=== PATIENT | female | born 1995 | race Hispanic/Latino ===

== ENCOUNTER 2021-01-30 16:10 | Emergency (ER) | payer SELFPAY ==
[2021-01-30] MEDS ORDERED: propofoL 200 MG/20 ML VIAL IV ONE (16:22)
[2021-01-30] MEDS ORDERED: KETAMINE HCL 500 MG/5 ML VIAL ONE (16:23)
--- NOTE | 2021-01-30 17:21 | RAD REPORT ---
EXAM DESCRIPTION: RAD - Knee Left 2 View - 01/30/2021 4:29 pm CLINICAL HISTORY: DEFORMITY COMPARISON: Knee Left 2 View dated 01/30/2021; Ankle Left 2 View dated 01/30/2021; Ankle Left 2 View dated 01/30/2021 FINDINGS: No fracture of the femur, tibia or fibula identified. There is dislocation of the patella without fracture identified. No measurable joint effusion. No joint space narrowing. No soft tissue a bnormality. IMPRESSION: Patella dislocation without fracture.
--- NOTE | 2021-01-30 17:23 | RAD REPORT ---
EXAM DESCRIPTION: RAD - Ankle Left 2 View - 01/30/2021 4:29 pm CLINICAL HISTORY: DEFORMITY, trip and fall COMPARISON: No comparisons FINDINGS: Frontal lateral projections of the ankle performed. Left ankle fracture dislocation is pre sent. There is lateral dislocation of the talus relative to the distal tibia. Medial malleolus transv erse fracture is present with fracture fragment maintaining positioning with the dome of the talus. O blique fractures of the distal fibula is also present with the fibula fracture fragment positioned ad jacent to the dome of the talus. Talus is dislocated laterally and posteriorly. Posterior malleolus f racture is suspected but not confirmed. No calcaneus fracture. Talus does not appear to be fractured. Tarsal and metatarsal bones are intact. Soft tissue swelling is present. IMPRESSION: Left ankle fracture dislocation as detailed.
--- NOTE | 2021-01-30 17:28 | RAD REPORT ---
EXAM DESCRIPTION: RAD - Knee Left 2 View - 01/30/2021 5:10 pm CLINICAL HISTORY: post reduction COMPARISON: Knee Left 2 View dated 01/30/2021 FINDINGS: Frontal and cross-table lateral left knee images obtained labeled post reduction. Patella has been reduced to anatomic position. No fracture identified.
--- NOTE | 2021-01-30 17:28 | RAD REPORT ---
EXAM DESCRIPTION: RAD - Ankle Left 2 View - 01/30/2021 5:09 pm CLINICAL HISTORY: post reduction COMPARISON: Ankle Left 2 View dated 01/30/2021 FINDINGS: Dislocated talus has been reduced to anatomic position. Distal fibular fracture also reduc ed to an anatomic position. Medial malleolus fracture fragment remains distracted approximately 2 mm. On the post reduction imaging the posterior malleolus appears to be intact. Delete select IMPRESSION: Reduction of the talus dislocation as detailed.
--- NOTE | 2021-01-30 18:09 | EDPHYS ---
Physician Documentation [facility] Name: Josie Hartmann Age: 25 yrs Sex: Female : 1995 Arrival Date: 01/30/2021 Time: 16:12 Bed 2 Private MD: ED Physician Marc Maddox HPI: 01/30 18:02 This 23 yrs old Female presents to ER via EMS with complaints of injury left jr8 leg. 18:02 This is a 23-year-old female that presented to the emergency room via EMS after jr8 sustaining a traumatic left leg injury. Patient was stepping off of an exercise box when she rolled her left leg causing immediate deformity to the ankle and to the left knee. Patient was given fentanyl in route to the emergency room and was stabilized in a position of comfort. Patient denies any other pain or traumatic findings at this time.. Historical: - Allergies: 17:27 No Known Allergies; jh5 - Immunization history:: Adult Immunizations up to date. - Social history:: Smoking status: Patient denies any tobacco usage or history of. ROS: 18:02 Eyes: Negative for injury, pain, redness, and discharge, ENT: Negative for injury, jr8 pain, and discharge, Neck: Negative for injury, pain, and swelling, Cardiovascular: Negative for chest pain, palpitations, and edema, Respiratory: Negative for shortness of breath, cough, wheezing, and pleuritic chest pain, Abdomen/GI: Negative for abdominal pain, nausea, vomiting, diarrhea, and constipation, Back: Negative for injury and pain, Skin: Negative for injury, rash, and discoloration, Neuro: Negative for headache, weakness, numbness, tingling, and seizure. 18:02 MS/extremity: Positive for decreased range of motion, deformity, pain, tenderness, of the left leg. Exam: 18:02 Head/Face: Normocephalic, atraumatic. Neck: Trachea midline, no thyromegaly or masses jr8 palpated, and no cervical lymphadenopathy. Supple, full range of motion without nuchal rigidity, or vertebral point tenderness. No Meningismus. Chest/axilla: Normal chest wall appearance and motion. Nontender with no deformity. No lesions are appreciated. Cardiovascular: Regular rate and rhythm with a normal S1 and S2. No gallops, murmurs, or rubs. Normal PMI, no JVD. No pulse deficits. Respiratory: Lungs have equal breath sounds bilaterally, clear to auscultation and percussion. No rales, rhonchi or wheezes noted. No increased work of breathing, no retractions or nasal flaring. Abdomen/GI: Soft, non-tender, with normal bowel sounds. No distension or tympany. No guarding or rebound. No evidence of tenderness throughout. Back: No spinal tenderness. No costovertebral tenderness. Full range of motion. Skin: Warm, dry with normal turgor. Normal color with no rashes, no lesions, and no evidence of cellulitis. Neuro: Awake and alert, GCS 15, oriented to person, place, time, and situation. Cranial nerves II-XII grossly intact. Motor strength 5/5 in all extremities. Sensory grossly intact. 18:02 Constitutional: The patient appears alert, awake, in obvious pain. 18:02 Musculoskeletal/extremity: Extremities: grossly normal except: noted in the left leg: Patient has obvious patellar dislocation to the left knee. Patient has obvious lateral dislocation of the left ankle. Sensation intact with 2+ posterior tibial and dorsal podalic's pulses. Able to wiggle toes. Overall decreased range of motion secondary to deformity and pain. Remainder of extremities unremarkable.. Vital Signs: 17:19 BP 145 / 97; Pulse 92; Resp 16; Pulse Ox 100% ; Weight 113.4 kg; jh5 17:29 BP 144 / 98; Pulse 87; Resp 16; Pulse Ox 100% ; jh5 Procedures: 18:02 Reduction: of the left knee, using traction, manipulation, Immobilized with OCL splint, jr8 Patient tolerated well. Post reduction film - reveals normal alignment. Reduction: of the left ankle, using traction, manipulation, Immobilized with OCL splint, Patient tolerated well. Post reduction film - reveals improved alignment. 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 MDM: 16:22 Patient medically screened. jr8 18:02 Data reviewed: vital signs, nurses notes, lab test result(s), radiologic studies, plain jr8 films. Data interpreted: Pulse oximetry: on room air is 100 %. Interpretation: normal. Counseling: I had a detailed discussion with the patient and/or guardian regarding: the historical points, exam findings, and any diagnostic results supporting the discharge/admit diagnosis, lab results, radiology results, the need to transfer to another facility, [facility] does not immediately have the required specialist. ED course: Patient continues to have an unstable trimalleolar fracture present. Marked improvement in alignment and has been splinted at this time but needs further evaluation by orthopedic trauma specialist. As such patient has been accepted at [facility] for further evaluation.. 01/30 16:14 Order name: Knee Left 2 View XRAY; Complete Time: 17:28 iw 01/30 16:14 Order name: Ankle Left 2 View XRAY; Complete Time: 17:28 iw 01/30 17:04 Order name: Ankle Left 2 View XRAY; Complete Time: 17:32 bd 01/30 17:04 Order name: Knee Left 2 View XRAY; Complete Time: 17:32 bd Administered Medications: 16:36 Drug: Ketamine 1 mg/kg {Note: 100mg/1ml.} Route: IVP; Site: left hand; [facility] 16:38 Drug: Propofol 100 mg {Note: 30mg Per PA. Gianluca} Route: IVP; Site: left hand; [facility] Disposition: 01/31 08:16 Co-signature as Attending Physician, Marc Maddox MD I agree with the assessment and kdr plan of care. Disposition Summary: 01/30/21 18:08 Transfer Ordered Transfer Location: [facility] jr Reason: Higher level of care jr8 Condition: Stable jr8 Problem: new jr8 Symptoms: have improved jr8 Accepting Physician: Dr. Chadwick(01/30/21 19:01) [facility] Diagnosis - Lateral dislocation of left patella jr8 - Displaced trimalleolar fracture of left lower leg, initial encounter for closed jr8 fracture Forms: - Medication Reconciliation Form jr8 - SBAR form jr8 Signatures: Dispatcher [employer] EDMS Marc Maddox MD MD kdr Roszak, Josh, PA PA jr8 Cyndi Velasquez RN RN jh5 Corrections: (The following items were deleted from the chart) 01/30 19:01 18:08 Dr. Chadwick 8 jh5
--- NOTE | 2021-01-30 18:09 | ER ---
Nurse's Notes [facility] Name: Josie Hartmann Age: 25 yrs Sex: Female : 1995 Arrival Date: 01/30/2021 Time: 16:12 Bed 2 Private MD: Diagnosis: Lateral dislocation of left patella;Displaced trimalleolar fracture of left lower leg, initial encounter for closed fracture Presentation: 01/30 17:22 Chief complaint: EMS states: Pt fell while working out; positive knee and ankle jh5 dislocation. Coronavirus screen: Vaccine status: Patient reports being unvaccinated. Client denies travel out of the [place] in the last 14 days. Ebola Screen: Patient negative for fever greater than or equal to 101.5 degrees Fahrenheit, and additional compatible Ebola Virus Disease symptoms Patient denies exposure to infectious person. Patient denies travel to an Ebola-affected area in the 21 days before illness onset. No symptoms or risks identified at this time. Initial Sepsis Screen: Does the patient meet any 2 criteria? No. Patient's initial sepsis screen is negative. Does the patient have a suspected source of infection? No. Patient's initial sepsis screen is negative. Risk Assessment: Do you want to hurt yourself or someone else? Patient reports no desire to harm self or others. Onset of symptoms was January 30, 2021. 17:22 Method Of Arrival: EMS: [place] [address] 17:22 Acuity: HIMANSHU 2 [facility] Triage Assessment: 17:27 General: Appears uncomfortable, obese, Behavior is calm, cooperative, appropriate for [facility] age. Pain: Complains of pain in left leg. Neuro: No deficits noted. Level of Consciousness is awake, alert, obeys commands, Oriented to person, place, time, situation, Speech is normal. Cardiovascular: No deficits noted. Capillary refill < 3 seconds Patient's skin is warm and dry. Respiratory: No deficits noted. Airway is patent Trachea midline Respiratory effort is even, unlabored, Respiratory pattern is regular, symmetrical. Historical: - Allergies: 17:27 No Known Allergies; [facility] - Immunization history:: Adult Immunizations up to date. - Social history:: Smoking status: Patient denies any tobacco usage or history of. Screenin:29 Abuse screen: Denies threats or abuse. Denies injuries from another. Nutritional [facility] screening: No deficits noted. Tuberculosis screening: No symptoms or risk factors identified. Fall Risk Fall in past 12 months (25 points). IV access (20 points). Vital Signs: 17:19 BP 145 / 97; Pulse 92; Resp 16; Pulse Ox 100% ; Weight 113.4 kg; jh5 17:29 BP 144 / 98; Pulse 87; Resp 16; Pulse Ox 100% ; [facility] ED Course: 16:12 Patient arrived in ED. bd 16:19 Gianluca Wilkinson PA is PHCP. pm1 16:22 Marc Maddox MD is Attending Physician. jr 16:28 Cyndi Velasquez, GILBERTO is Primary Nurse. 5 16:29 Knee Left 2 View XRAY In Process Unspecified. EDMS 16:29 Ankle Left 2 View XRAY In Process Unspecified. EDMS 17:09 Ankle Left 2 View XRAY In Process Unspecified. EDMS 17:09 Knee Left 2 View XRAY In Process Unspecified. EDMS 17:27 Triage completed. [facility] 17:30 Arm band placed on right wrist. [facility] 17:30 Patient has correct armband on for positive identification. Bed in low position. Call [facility] light in reach. Side rails up X2. 17:30 Inserted saline lock:. [facility] 17:31 No provider procedures requiring assistance completed. [facility] Administered Medications: 16:36 Drug: Ketamine 1 mg/kg {Note: 100mg/1ml.} Route: IVP; Site: left hand; [facility] 16:38 Drug: Propofol 100 mg {Note: 30mg Per JANINA Hough.} Route: IVP; Site: left hand; [facility] Outcome: 17:31 Discharged to [facility] 17:31 Condition: good 18:08 ER care complete, transfer ordered by . [facility] 19:01 Patient left the ED. [facility] Signatures: Dispatcher [employer] EDMS Dayana Muhammad Gianluca Wilkinson PA PA [facility] Andrés Vee MIXING MACHINE OPERATOR MIXING MACHINE OPERATOR pm1 Cyndi Velasquez, RN RN [facility]
[2021-01-30 19:15] VITALS: O2SAT 100
[2021-01-30 19:17] VITALS: BP 144/98
== END 2021-01-30 19:01 | disposition short-term general hospital (02) ==
LOC: EDBD 16:10 → ER 16:10
PROC: 0QSFXZZ Reposition Left Patella, External Approach (ICD-10-PCS; principal; 2021-01-30)
PROC: 0QSHXZZ Reposition Left Tibia, External Approach (ICD-10-PCS; 2021-01-30)
DX: S82.852A Displaced trimalleolar fracture of left lower leg, initial encounter for closed fracture (principal); Y93.B9 Activity, other involving muscle strengthening exercises
CPT/HCPCS: 96374; 96375; 99284; J2704

== ENCOUNTER 2021-03-06 14:46 | Emergency (ER) | payer SELFPAY ==
--- OUTSIDE RECORDS SUMMARY | 2021-03-06 14:48 | XMS REPORT | Continuity of Care Document ---
:1995 Author Organization [facility] t Address [address] [place] [address] Care Team Providers Name Role Phone ROSEMARIE BENNETT Attending Clinician Unavailable Jeri ZAFAR Attending Clinician Unavailable Harper HERNANDEZ Attending Clinician Unavailable JULISA Attending Clinician Unavailable Ronaldo ROJAS Attending Clinician Unavailable REG Attending Clinician Unavailable Nhan VILLANUEVA Admitting Clinician Unavailable Payers Payer Name Policy Type Policy Number Effective Date Expiration Date S ource PENDING MEDICAID [id number] 2021 2021 ([facility]) 00:00:00 00:00:00 Problems This patient has no known problems. Allergies, Adverse Reactions, Alerts This patient has no known allergies or adverse reactions. Medications This patient has no known medications. Procedures This patient has no known procedures. Encounters Start End Encounter Admission Attending Care Care Encounter Source Date/Time Date/Time Type Type Clinicians Facility Department ID 2021-03-21 2021-03-21 Outpatient [facility] [id number] [place] 00:00:00 00:00:00 [facility] 2021-03-21 2021-03-21 Outpatient SABRINA [facility] [id number] [place] 00:00:00 00:00:00 ROSEMARIE dejesus 2021-02-23 2021-02-23 [facility] [id number] [place] 09:06:21 23:59:00 [facility] 2021-02-23 2021-02-23 [facility] [id number] [place] 07:42:24 10:35:51 [facility] 2021-02-23 2021-02-23 [facility] [id number] [place] 00:00:00 00:00:00 [facility] 2021-01-30 2021-02-06 [id number] [place] 20:11:00 11:37:00 GURPREET dejesus 2021-02-05 2021-02-05 [facility] [id number] [place] 08:04:08 08:04:08 [facility] 2021-02-05 2021-02-05 Outpatient [facility] [id number] [place] 00:00:00 00:00:00 DELBERTYVROSE Huber 2021-02-05 2021-02-05 Outpatient [facility] [id number] [place] 00:00:00 00:00:00 DELBERT Huber harper 2021-01-31 2021-01-31 Emergency [facility] [id number] [place] 03:09:59 03:24:47 [facility] 2021-01-31 2021-01-31 Emergency [facility] [id number] [place] 00:00:24 00:15:50 [facility] 2021-01-30 2021-01-30 Emergency [facility] [id number] [place] 23:44:52 23:50:56 [facility] 2021-01-30 2021-01-30 [facility] [id number] [place] 20:22:58 20:22:59 [facility] 2021-01-30 2021-01-30 [facility]patient [facility] [id number] [place] 20:11:00 20:11:00 GURPREET Mcknight alth Results Test Description Test Time Test Comments Results Result Comments Source SARS-CoV-2 ORF1ab Resp Ql REBECA+probe 2021-02-04 02:11:08 Test Item Value Reference Range Interpretation Comme nts Hospitalized? (test code = Yes 31281-2) ICU? (test code = 38302-0) No Symptomatic as defined by CDC? No (test code = 12488-7) Employed in Healthcare? (test No code = 75187-5) Resident in a congregate care No setting (including nursing homes, residential care for people with intellectual and developmental disabilities, psychiatric treatment facilities, group homes, board and care homes, homeless fdc, foster care or other): (test code = 68857-9) ? (test code = No 17868-4) SARS-CoV-2 ORF1ab Resp Ql NOT DETECTED Not Detected IN TERPRETATION: No REBECA+probe (test code = [place] [address]-8) SARS-CoV-2 Mikael navirus (COVID-19) were present in this patient's sample by this test. A no t detected result does not exclude the possibility of active infection with this virus due to other fa ctors that may affect the results such as a poorly col lected sample, viral t iters below the limit of de tection of the assay, and the infrequent poss ibility of inhibitors in t he sample. This result harriet uld be interpreted in conjunction with clinical, radiographic, a nd other laboratory find ings and should not be u sed as the sole indicator of active infection with SARS-CoV-2 Coronavirus ([place] VID-19). COMMENT: This SHAD[employer] SARS-CoV-2 molecular diagnostic assay utilizes Steam Frame Operator Mediated Amplification (TMA) technology to rapidly detect the SARS-CoV-2 (COVID-19) virus from respiratory samples. In accordance with the FDA's guidance document "Policy for Diagnostic Tests for Coronavirus Disease- 2019 during the Public Health Emergency", this test was developed, and its performance characteristics were verified by the [facility] molecular diagnostics laboratory and is authorized for clinical diagnostic use. This laboratory is certified under the Clinical Laboratory Improvement Amendments (CLIA) as qualified to perform high complexity clinical laboratory testing.SARS-CoV-2 ORF1ab Resp Ql REBECA+[id number] 01:32:00 Test Item Value Reference Range Interpretation Comments Hospitalized? (test No code = 04682-9) ICU? (test code = No 23411-8) Symptomatic as defined No by CDC? (test code = 10397-8) Employed in No Healthcare? (test code = 05119-2) Resident in a No congregate care setting (including nursing homes, residential care for people with intellectual and developmental disabilities, psychiatric treatment facilities, group homes, board and care homes, homeless fdc, foster care or other): (test code = 78265-2) ? (test code = No 97423-4) SARS-CoV-2 ORF1ab Resp NOT DETECTED Not Detected INTER PRETATION: No Ql REBECA+probe (test detectabl e levels code = 74535-4) of SARS-CoV- 2 Coronavirus (COVID-19) were present in this patient's sampl e by this test. A no t detected result does not exclud e the possibility of active infectio n with this virus due to other factor s that may affect the results such as a poorly collecte d sample, viral titers below th e limit of detect ion of the assay, a nd the infrequent possibility of inhibitors in t he sample. This re sult should be interpreted in conjunction wit h clinical, radiographic, a nd other laborator y findings and sh ould not be used as the sole indicator of active infectio n with SARS-CoV-2 Coronavirus (COVID-19). COMMENT: This [employer] SARS-CoV-2 molecular diagnostic assay utilizes Steam Frame Operator Mediated Amplification (TMA) technology to rapidly detect the SARS-CoV-2 (COVID-19) virus from respiratory samples. In accordance with the FDA's guidance document "Policy for Diagnostic Tests for Coronavirus Disease- 2019 during the Public Health Emergency", this test was developed, and its performance characteristics were verified by the [facility] molecular diagnostics laboratory and is authorized for clinical diagnostic use. This laboratory is certified under the Clinical Laboratory Improvement Amendments (CLIA) as qualified to perform high complexity clinical laboratory testing.HIV 1+2 Ab+HIV1 p24 Ag SerPl Ql [id number] 22:35:41 Test Item Value Reference Range Interpretation Comments HIV 1+2 Ab+HIV1 p24 Ag SerPl Ql [place] NEGATIVE Negative (test code = 86704-6)
--- NOTE | 2021-03-06 20:42 | EDPHYS ---
Physician Documentation [facility] Name: Josie Hartmann Age: 25 yrs Sex: Female : 1995 Arrival Date: 03/06/2021 Time: 14:50 Bed Waiting Private MD: ED Physician Kenny Hinkle HPI: 03/06 22:14 This 25 yrs old Female presents to ER via Wheelchair with complaints of Rash. kb 22:14 The patient's rash thought to be caused by an unknown cause. The rash is located on the kb lateral aspect of left calf, left calf, medial aspect of left calf and left witt. The rash can be described as macular, papular. Onset: The symptoms/episode began/occurred 5 day(s) ago. Associated signs and symptoms: Pertinent positives: itching, Pertinent negatives: fever, Pain. Severity of symptoms: At their worst the symptoms were moderate in the emergency department the symptoms are unchanged. The patient has not experienced similar symptoms in the past. The patient has not recently seen a physician. rash to LLE where walking boot touches skin for 5 days. . Historical: - Allergies: 16:05 No Known Allergies; ll1 - PMHx: 16:05 None; ll1 - PSHx: 16:05 ankle SX; ll1 - Immunization history:: Client reports having NOT received the Covid vaccine. - Social history:: Smoking status: Patient denies any tobacco usage or history of. ROS: 22:14 Constitutional: Negative for fever, chills, and weight loss. kb 22:14 Skin: Positive for rash, of the left witt and medial aspect of left calf and left calf and lateral aspect of left calf. 22:14 All other systems are negative. Exam: 22:16 Constitutional: This is a well developed, well nourished patient who is awake, alert, kb and in no acute distress. Head/Face: Normocephalic, atraumatic. ENT: Moist Mucous membranes Respiratory: Respirations even and unlabored. No increased work of breathing. Talking in full sentences MS/ Extremity: Pulses equal, no cyanosis. Neurovascular intact. Full, normal range of motion. Neuro: Awake and alert, GCS 15, oriented to person, place, time, and situation. Moves all extremities. Normal gait. Psych: Awake, alert, with orientation to person, place and time. Behavior, mood, and affect are within normal limits. 22:16 Skin: rash a moderate rash is noted, consistent with contact dermatitis, on the left witt and medial aspect of left calf and left calf and lateral aspect of left calf. Vital Signs: 16:06 BP 137 / 76; Pulse 87; Resp 18; Temp 98.1; Pulse Ox 100% ; Height 5 ft. 0 in. (152.40 ll1 cm); Pain 0/10; MDM: 20:40 Patient medically screened. kb 22:14 Data reviewed: vital signs, nurses notes. Data interpreted: Pulse oximetry: on room air kb is 100 %. Interpretation: normal. Counseling: I had a detailed discussion with the patient and/or guardian regarding: the historical points, exam findings, and any diagnostic results supporting the discharge/admit diagnosis, the need for outpatient follow up, a family practitioner, to return to the emergency department if symptoms worsen or persist or if there are any questions or concerns that arise at home. Administered Medications: No medications were administered Disposition: 03/07 04:06 Co-signature as Attending Physician, Kenny Hinkle MD. [email or web address] Disposition Summary: 03/06/21 20:41 Discharge Ordered Location: Home kb Condition: Stable kb Diagnosis - Allergic contact dermatitis, unspecified cause kb Followup: kb - With: Emergency Department - When: As needed - Reason: Worsening of condition Followup: kb - With: Private Physician - When: 2 - 3 days - Reason: Recheck today's complaints, Continuance of care, Re-evaluation by your physician Discharge Instructions: - Discharge Summary Sheet kb - Contact Dermatitis, [id number] kb Forms: - Medication Reconciliation Form kb - Thank You Letter kb - Antibiotic Education kb - Prescription Opioid Use kb Prescriptions: - Pepcid 20 mg Oral Tablet - take 1 tablet by ORAL route every 12 hours for 5 days; 10 tablet; Refills: 0, kb Product Selection Permitted - Prednisone 20 mg Oral Tablet - take 1 tablet by ORAL route once daily for 5 days; 5 tablet; Refills: 0, kb Product Selection Permitted Signatures: Faith Obrien FNP-C FNP-Ckb Lewis, Lynsay, RN RN ll1 Kenny Hinkle MD MD [email or web address]
--- NOTE | 2021-03-06 20:42 | ER ---
Nurse's Notes [facility] Name: Josie Hartmann Age: 25 yrs Sex: Female : 1995 Arrival Date: 03/06/2021 Time: 14:50 Bed Waiting Private MD: Diagnosis: Allergic contact dermatitis, unspecified cause Presentation: 03/06 16:06 Chief complaint: Patient states: Rash to LLE for 5 days with itching. Had ankle SX ll1 about 1 month ago, site is healing well. Not a lot of pain anymore. Coronavirus screen: Vaccine status: Patient reports being unvaccinated. Client denies travel out of the [place] in the last 14 days. At this time, the client does not indicate any symptoms associated with coronavirus-19. Ebola Screen: Patient denies travel to an Ebola-affected area in the 21 days before illness onset. Initial Sepsis Screen: Does the patient meet any 2 criteria? No. Patient's initial sepsis screen is negative. Does the patient have a suspected source of infection? Yes: Other: rash. Risk Assessment: Do you want to hurt yourself or someone else? Patient reports no desire to harm self or others. Onset of symptoms was March 02, 2021. 16:06 Method Of Arrival: Wheelchair ll1 16:06 Acuity: HIMANSHU 4 ll1 Historical: - Allergies: 16:05 No Known Allergies; ll1 - PMHx: 16:05 None; ll1 - PSHx: 16:05 ankle SX; ll1 - Immunization history:: Client reports having NOT received the Covid vaccine. - Social history:: Smoking status: Patient denies any tobacco usage or history of. Assessment: 20:47 Reassessment: Patient is alert, oriented x 3, equal unlabored respirations, skin bb warm/dry/pink. pt seen by this RN at discharge pt verbalized understanding of and agrees to plan of care discharge instructions given pt assisted to exit via wheelchair accompanied by spouse. Vital Signs: 16:06 BP 137 / 76; Pulse 87; Resp 18; Temp 98.1; Pulse Ox 100% ; Height 5 ft. 0 in. (152.40 ll1 cm); Pain 0/10; ED Course: 14:50 Patient arrived in ED. mr 16:08 Triage completed. ll1 16:08 Arm band placed on. ll1 20:40 [facility]C [facility]. kb 20:40 Kenny Hinkle MD is Attending Physician. kb Administered Medications: No medications were administered Outcome: 20:41 Discharge ordered by . kb 20:48 Patient left the ED. bb Signatures: Faith Obrien FNP-C FNP-Tk CordonaNaomi mr Lala Goldstein RN RN bb Jyotsna Shipley RN RN 1
[2021-03-06 20:55] VITALS: BP 137/76; TEMP 98.1; O2SAT 100
== END 2021-03-06 20:48 | disposition home or self-care (01) ==
LOC: ER 14:46
DX: L23.9 Allergic contact dermatitis, unspecified cause (principal)
CPT/HCPCS: 99281